=== PATIENT | female | born 1965 | race Caucasian/White ===

== ENCOUNTER → 2017-01-12 | Outpatient (CLI) | payer BC ==
[~2017-01-12] MED LIST: ALBU8.5H INH; ESOM20CA PO; HYDR-4246 PO; IBUP-1547 PO; LEVO75TA10 PO
[2017-01-12 17:02] LABS: HCT - HEMATOCRIT 44.2 % (36-46); HGB - HEMOGLOBIN 15.2 GM/DL (12-16); MEAN CORPUSCULAR HGB 32.1 UUG (26-34); MEAN CORPUSCULAR HGB CONC(MCHC 34.4 GM/DL (31-37); MEAN CORPUSCULAR VOLUME 93.4 UM3 (80-100); MEAN PLATELET VOLUME 10.1 UM3 (9.4-12.4); RED BLOOD COUNT 4.73 M/MM3 (4.00-5.20); WBC - WHITE BLOOD COUNT 18.3 T/MM3 (4.5-11.0)
[2017-01-12 17:11] LABS: ALBUMIN 4.4 G/DL (3.5-5.0); ALBUMIN/GLOBULIN RATIO 1.5 RATIO (1.1-2.2); ALKALINE PHOSPHATASE 64 U/L (38-126); ALT (SGPT) 32 U/L (9-52); ANION GAP 11 MEQ/L (5-15); AST (SGOT) 29 U/L (14-36); BUN/CREATININE RATIO 12 RATIO (6-26); CALCIUM 9.3 MG/DL (8.4-10.2); CHLORIDE 104 MEQ/L (98-107); CO2 - CARBON DIOXIDE 28 MEQ/L (22-30); CREATININE 0.9 MG/DL (0.7-1.2); GLOMERULAR FILTRATION RATE 65; GLUCOSE 90 MG/DL (65-110); LDH 466 U/L (313-618); POTASSIUM 4.2 MEQ/L (3.6-5); SODIUM 143 MEQ/L (134-144); TOTAL PROTEIN 7.4 G/DL (6.3-8.2)
[2017-01-12 17:18] LABS: EOSINOPHILS # (MANUAL) 0.2 T/MM3 (0-0.5); METAMYELOCYTES # 0.7 T/MM3; MONOCYTES # (MANUAL) 1.3 T/MM3 (0-0.8); NEUTROPHILS #(MANUAL)-ABSOLUTE 5.7 T/MM3 (1.8-7.7); REACTIVE LYMPHOCYTES # 1.5 T/MM3 (0-0); TOTAL CELLS COUNTED 100 %
[2017-01-12 17:19] LABS: IGA - IMMUNOGLOBULIN A 201.28 MG/DL (70-400); IGG - IMMUNOGLOBULIN G 963.87 MG/DL (700-1600); IGM - IMMUNOGLOBULIN M 70.09 MG/DL (40-230)
== END ==
LOC: LAB 16:10
PROVIDERS: ATTEND Internal Medicine Medical Oncology
DX: C92.10 Chronic myeloid leukemia, BCR/ABL-positive, not having achieved remission (principal)
CPT/HCPCS: 36415; 80053; 82784; 83615; 85025